=== PATIENT | male | born 1995 | race Caucasian/White ===

== ENCOUNTER 2017-03-07 14:43 | Emergency (ER) | payer BC, OTHER ==
[~2017-03-07] VITALS: Ht 177.8 cm; Wt 61.0 kg
[~2017-03-07 14:43] MED LIST: VITAFUSION PO
[2017-03-07 14:56] VITALS: BP 110/56; PULSE 108; RESP 18; TEMP 101; O2SAT 96
[2017-03-07] MEDS ORDERED: SODIUM CHLOR 0.9% 1000 ML INJ 1,000 ML IV SCH (15:16)
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
[2017-03-07] MEDS ORDERED: SODIUM CHLORIDE 0.9% FLUSH 10 ML FLUSH IV FLUSH PRN (15:30)
[2017-03-07 15:40] VITALS: BP 109/69; PULSE 86; RESP 16; O2SAT 98
[2017-03-07 15:43] LABS: BLOOD, URINE NEG (NEG); GLUCOSE,URINE NEG (NEG); KETONE, URINE NEG (NEG); NITRITE,URINE NEG (NEG); PH, URINE 6.5 (5.0-8.5)
[2017-03-07 15:49] LABS: AUTOMATED NEUTROPHIL # 8.5 TH/MM3 (1.8-7.7); BASOPHIL # 0.1 TH/MM3 (0-0.2); BASOPHIL % 0.7 % (0.0-2.0); HEMATOCRIT 42.9 % (39.0-51.0); LYMPH % 7.4 % (9.0-44.0); LYMPHOCYTE # 0.7 TH/MM3 (1.0-4.8); MEAN CELL VOLUME 90.3 FL (80.0-100.0); MEAN CORPUSCULAR HEMOGLOBIN 30.6 PG (27.0-34.0); MEAN CORPUSCULAR HGB CONC 33.9 % (32.0-36.0); MONO % 6.3 % (0.0-8.0); NEUT % 85.6 % (16.0-70.0); PLATELET COUNT 167 TH/MM3 (150-450); RED BLOOD COUNT 4.75 MIL/MM3 (4.50-5.90); RED CELL DISTRIBUTION WIDTH 12.8 % (11.6-17.2); WHITE BLOOD COUNT 9.9 TH/MM3 (4.0-11.0)
[2017-03-07 15:51] LABS: CHLORIDE 99 MEQ/L (98-107); POTASSIUM 3.7 MEQ/L (3.5-5.1); SODIUM (NA) 137 MEQ/L (136-145)
[2017-03-07 15:54] LABS: METHOD OF COLLECTION CLEAN CATCH; URINE COLOR YELLOW (YELLW/STRAW)
[2017-03-07 15:55] LABS: ANION GAP 9 MEQ/L (5-15); BICARBONATE 29.5 MEQ/L (21.0-32.0); BLOOD UREA NITROGEN 15 MG/DL (7-18)
[2017-03-07 15:55] LABS: COMMENT (UR) CULT NOT INDICATED; CULTURE IF INDICATED CULT NOT INDICATED; MUCUS URINE FEW /lpf (OCC); RBC, URINE 0-3 /hpf (0-3); SQUAMOUS EPITHELIAL CELL URINE 0-5 /hpf (0-5)
[2017-03-07 15:58] LABS: ALT (GPT) 23 U/L (12-78); AST (GOT) 11 U/L (15-37); GLOMERULAR FILTRATION RATE 114 ML/MIN (>89)
[2017-03-07 15:59] LABS: HEMO FLAGS DIFF FINAL
[2017-03-07 16:01] LABS: ALKALINE PHOSPHATASE 51 U/L (45-117)
[2017-03-07] MEDS ORDERED: ONDANSETRON HCL 4 MG/2 ML VIAL IV PUSH ONE (16:30)
[2017-03-07 16:48] VITALS: BP 109/65; PULSE 86; RESP 17; TEMP 99.7; O2SAT 97
[2017-03-07 16:50] VITALS: BP 110/67; PULSE 82; RESP 16; O2SAT 98
[2017-03-07] MEDS ORDERED: ZOFR4TAB3 SL (17:25)
[2017-03-07 17:43] VITALS: BP 105/58
== END 2017-03-07 17:50 | disposition home or self-care (01) ==
LOC: PHED 14:43
DX: R11.2 Nausea with vomiting, unspecified (principal); R10.9 Unspecified abdominal pain; R50.9 Fever, unspecified; R30.0 Dysuria
CPT/HCPCS: 80053; 81001; 83690; 85025; 87804; 96360; 99284; J7030